=== PATIENT | male | born 1945 | race Caucasian/White ===

== ENCOUNTER → 2018-08-03 | Outpatient (CLI) | payer MEDICARE, OTHER ==
[~2018-08-03] MED LIST: ASPI81CH PO; CIPR250 PO; CLON.5 PO; DOXA4; LOVA40 PO; Mobic15 MG PO; OMEP20ER PO; PREG200 PO; PROM25S PR; VITAMIN D32000 UNI1 PO; ZINC10 MG PO
== END ==
LOC: PLD 10:32 → LAB SHORT 10:32
DX: L82.1 Other seborrheic keratosis (principal)
CPT/HCPCS: 88305

== ENCOUNTER 2020-04-30 12:10 | Day surgery (SDC) | payer MEDICARE, OTHER ==
[~2020-04-30] VITALS: Ht 175.3 cm; Wt 81.8 kg
[~2020-04-30 12:10] MED LIST changes: +LEVSOD112 PO
[2020-04-30] MEDS ORDERED: ROPI1 (13:42)
[2020-04-30] MEDS ORDERED: TAMS.4ER (13:42)
== END 2020-04-30 14:47 | disposition home or self-care (01) ==
LOC: ORSCSDS 12:10
PROVIDERS: Surgery
PROC: 0DBH8ZX Excision of Cecum, Via Natural or Artificial Opening Endoscopic, Diagnostic (ICD-10-PCS; principal; 2020-04-30 13:30)
PROC: 0DBL8ZX Excision of Transverse Colon, Via Natural or Artificial Opening Endoscopic, Diagnostic (ICD-10-PCS; principal; 2020-04-30 13:30)
DX: Z12.11 Encounter for screening for malignant neoplasm of colon (principal); Z86.010 Personal history of colon polyps; Z80.0 Family history of malignant neoplasm of digestive organs; D12.3 Benign neoplasm of transverse colon; D12.0 Benign neoplasm of cecum; E78.5 Hyperlipidemia, unspecified; Z86.73 Personal history of transient ischemic attack (TIA), and cerebral infarction without residual deficits; Z79.899 Other long term (current) drug therapy; Z87.891 Personal history of nicotine dependence
CPT/HCPCS: 88305; J2704; J7120

== ENCOUNTER 2023-04-20 08:40 | Inpatient (IN) | payer MEDICARE, OTHER ==
[~2023-04-20] VITALS: Ht 172.7 cm; Wt 183.0 kg
[~2023-04-20 08:40] MED LIST changes: +ROPI1; +TAMS.4ER
[2023-04-20 09:38] LABS: BASOPHILS ABSOLUTE AUTO 0.05 K/mm3 (0.00-0.23); BASOPHILS PERCENT AUTO 1 % (0-2); EOSINOPHILS ABSOLUTE AUTO 0.11 K/mm3 (0.00-0.68); EOSINOPHILS PERCENT AUTO 1 % (0-6); Hematocrit 50.9 % (37.0-53.0); Hemoglobin 18.3 g/dL (13.5-17.5); IMMATURE GRAN ABSOLUTE AUTO 0.03 K/mm3 (0.00-0.10); IMMATURE GRAN PERCENT AUTO 0 % (0-1); LYMPHOCYTES PERCENT AUTO 12 % (21-46); MONOCYTES ABSOLUTE AUTO 1.19 K/mm3 (0.16-1.47); MONOCYTES PERCENT AUTO 15 % (4-13); Mean Corpuscular HGB 33.5 pg (26.0-34.0); Mean Corpuscular Volume 93 fL (80-100); Mean Platelet Volume 11.3 fL (9.1-12.4); NEUTROPHILS ABSOLUTE AUTO 5.74 K/mm3 (1.96-9.15); NEUTROPHILS PERCENT AUTO 71 % (41-73); Platelet Count 265 K/mm3 (150-400); RDW Coefficient Variation 19.8 % (11.7-14.2); RDW Standard Deviation 65.1 fL (35.1-46.3); Red Blood Cell Count 5.46 M/mm3 (4.30-5.90); White Blood Cell Count 8.12 K/mm3 (4.00-11.30)
[2023-04-20 10:00] LABS: Albumin, Blood 4.1 g/dL (3.4-5.0); Albumin/Globulin Ratio 0.9 (0.8-1.8); Bilirubin, Total 0.9 mg/dL (0.1-1.0); Bun/Creatinine Ratio 11.2 (12.0-20.0); Calcium, Blood 9.7 mg/dL (8.5-10.1); Creatinine, Blood 3.66 mg/dL (0.60-1.20); Globulin, Blood 4.6 g/dL (2.2-4.0); Potassium, Blood 3.5 mmol/L (3.5-5.5); Total Protein, Blood 8.7 g/dL (6.4-8.2)
[2023-04-20 11:09] LABS: Base Excess Venous -2.7 mmol/L; Bicarbonate Venous 22.7 mmol/L (24.0-30.0); PCO2 Venous 32.1 mmHg (38-42); PO2 Venous 58.4 mmHg (38-42); pH Blood Venous 7.43 (7.34-7.37)
--- NOTE | 2023-04-20 11:53 | NUR ---
Devora is awake in his bed when he welcomes my visit. The Pt. is pleasant and Spouse is present. 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 Facilitate a recent life review and listen with interest and a calming presence. Pt. displays evidence of awareness and engagement. During the visit the ED doctor gave the Pt. and spouse an update. The plan is to have the Pt. admitted to the hospital. Pt. verbalized gratitude for the spiritual care visit. Will remain available to the Pt. and family.
[2023-04-20 11:58] LABS: Campylobacter Sp Not Detected (NOT DETECT)
[2023-04-20 11:59] LABS: Adenovirus F 40/41 Not Detected (NOT DETECT); Astrovirus Not Detected (NOT DETECT); Cryptosporidium Not Detected (NOT DETECT); Cyclospora Cayetanensis Not Detected (NOT DETECT); E. Coli O157 Not Detected (NOT DETECT); Entamoeba Histolytica Not Detected (NOT DETECT); Enteroaggregative E. coli-EAEC Not Detected (NOT DETECT); Enteropathogenic E. coli-EPEC Not Detected (NOT DETECT); Enterotoxigenic E. coli-ETEC Not Detected (NOT DETECT); Giardia Lamblia Not Detected (NOT DETECT); Norovirus GI/GII Not Detected (NOT DETECT); Plesiomonas Shigelloides Not Detected (NOT DETECT); Rotavirus A Not Detected (NOT DETECT); Salmonella Sp Not Detected (NOT DETECT); Sapovirus Not Detected (NOT DETECT); Shiga Toxin-prod E. coli-STEC Not Detected (NOT DETECT); Shigella/Enteroin E. coli-EIEC Not Detected (NOT DETECT); Vibrio Cholerae Not Detected (NOT DETECT); Vibrio Sp Not Detected (NOT DETECT); Yersinia Enterocolitica Not Detected (NOT DETECT)
[2023-04-20 14:17] VITALS: BP 127/83
--- NOTE | 2023-04-20 14:29 | NUR ---
"Spiritual Care | Follow up Pt. is awake in bed when he welcomes my visit. Pt. is pleasant, and spouse is present. Continued the life review and re-established rapport. Pt. requested prayer. Prayed with pt. and spouse. Both verbalized gratitude for the spiritual care visit."
[2023-04-20] MEDS ORDERED: HYDURE500 PO (14:38)
[2023-04-20] MEDS ORDERED: AMLO5 PO (14:39)
[2023-04-20 17:17] LABS: Source, Urine Clean Catch
[2023-04-20 17:20] LABS: Appearance, Urine Hazy (Clear); Blood, Urine 4+ (Neg); Color, Urine Yellow (P-Yellow); Glucose Qualitative, Urine Neg (Neg); Ketones, Urine Neg (Neg); Leukocyte Esterase, Urine Neg (Neg); Nitrite, Urine Neg (Neg); Protein, Urine 2+ (Neg); Specific Gravity, Urine 1.025 (1.003-1.022); Urobilinogen, Urine NORM (Normal)
[2023-04-20 17:39] LABS: Bilirubin, Urine 1+ (Neg)
[2023-04-20 17:41] LABS: Bacteria Few /hpf; Granular Casts 0-2 /lpf (0); Squamous Epithelial Cells Rare /hpf (Few)
[2023-04-20 17:42] LABS: Amorphous Light (0-Heavy)
--- NOTE | 2023-04-20 18:27 | NUR ---
SHIFT SUMMARY: PT ARRIVED TO ROOM @1400 VIA WHEELCHAIR. VERY PLEASANT MAN. COOPERATIVE WITH ALL CARE. NS INFUSING @ 200/HR. TELE IN PLACE RUNNING SINUS RHYHTM. INDEPENDENT IN ROOM. STILL C/O FREQUENT DIARRHEA BUT NO N/V NOTED THIS SHIFT. UA SENT TO LAB. RESULTS IN CHART. CALL LIGHT IN REACH. BED IN LOWEST POSITION.
[2023-04-20 19:56] VITALS: BP 128/78
--- NOTE | 2023-04-20 22:43 | NUR ---
ALERT AND OREINTED. IVF INFUSING AT 200 ML/HR. VOICED DIARRHEA EARLIER, NO C/O N/V AT THIS TIME. CALL LIGHT IN REACH
[2023-04-21 03:54] VITALS: BP 122/76
--- NOTE | 2023-04-21 04:44 | NUR ---
LACTATION CONSULTANT SUMMARY VSS. ALERT AND ORIENTED X 4. WAS REPORTED TO HAVE HAD DIARRHEA ON DAY SHIFT, NO NOTED REPORT OF DIARRHEA ON THIS SHIFT. NO NOTED N/V. IVF OF NS INFUSING AT 200 ML/HR PER HR FOR HYDRATION. UP AD NICOLE. MED TELE SINUS RHYTHM. HAS BEEN RSTING QUIETLY WITH FEW INTERRUPTIONS. CALL LIGHT IN REACH. WILL CONTINUE TO MONITOR.
[2023-04-21 05:45] LABS: BASOPHILS ABSOLUTE AUTO 0.04 K/mm3 (0.00-0.23); BASOPHILS PERCENT AUTO 1 % (0-2); EOSINOPHILS ABSOLUTE AUTO 0.15 K/mm3 (0.00-0.68); EOSINOPHILS PERCENT AUTO 2 % (0-6); Hematocrit 42.3 % (37.0-53.0); Hemoglobin 14.6 g/dL (13.5-17.5); IMMATURE GRAN ABSOLUTE AUTO 0.04 K/mm3 (0.00-0.10); IMMATURE GRAN PERCENT AUTO 1 % (0-1); LYMPHOCYTES ABSOLUTE AUTO 1.01 K/mm3 (0.84-5.20); LYMPHOCYTES PERCENT AUTO 13 % (21-46); MONOCYTES ABSOLUTE AUTO 1.17 K/mm3 (0.16-1.47); MONOCYTES PERCENT AUTO 15 % (4-13); Mean Corpuscular HGB Conc 34.5 g/dL (31.5-36.5); Mean Corpuscular Volume 96 fL (80-100); Mean Platelet Volume 11.3 fL (9.1-12.4); NEUTROPHILS ABSOLUTE AUTO 5.46 K/mm3 (1.96-9.15); NEUTROPHILS PERCENT AUTO 69 % (41-73); Platelet Count 206 K/mm3 (150-400); RDW Coefficient Variation 19.3 % (11.7-14.2); RDW Standard Deviation 67.1 fL (35.1-46.3); Red Blood Cell Count 4.42 M/mm3 (4.30-5.90); White Blood Cell Count 7.87 K/mm3 (4.00-11.30)
[2023-04-21 07:26] VITALS: BP 119/79
[2023-04-21 08:28] LABS: Albumin, Blood 3.2 g/dL (3.4-5.0); Anion Gap 9 mmol/L (6-16); Blood Urea Nitrogen 24 mg/dL (8-24); Bun/Creatinine Ratio 12.4 (12.0-20.0); CO2, Blood 18 mmol/L (21-32); Calcium, Blood 8.3 mg/dL (8.5-10.1); Chloride, Blood 112 mmol/L (98-108); Creatinine, Blood 1.94 mg/dL (0.60-1.20); Glomerular Filtration Rate 35 (60-); Glucose, Blood 101 mg/dL (70-99); Phosphorus, Blood 3.5 mg/dL (2.5-4.9); Potassium, Blood 3.4 mmol/L (3.5-5.5); Sodium, Blood 139 mmol/L (136-145)
--- NOTE | 2023-04-21 10:50 | NUR ---
RN NOTE MR LEO IS RESTING IN BED, FAMILY AT BEDSIDE. HE DENIES ANY C/O PAIN CURRENTLY THOUGH SAYS HE DOES GET SOME RIGHT FLANK DISCOMFORT ON MOVEMENT. IVF NS AT 200CC/HR AND IV POTASSIUM INFUSING CONCURRENTLY. NO C/O BURNING AT PIV SITE. UP INDEPENDENTLY TO THE BATHROOM, HE DENIES ANY UNSTEADINESS OF GAIT OR DIZZYNESS. NO DIARRHEA THIS SHIFT. PLAN OF CARE DISCUSSED WITH MD AND FAMILY, PLAN FOR POSSIBLE DISCHARGE TOMORROW. REGULAR DIET ORDER ENTERED INTO [facility] FOR LUNCH PER V.O. FROM DR JAMIL. BED LOW, CALL LIGHT IN REACH.
--- NOTE | 2023-04-21 12:05 | NUR ---
Pt. is awake in bed when he welcomes my visit. Pt. is pleasant. Spouse is present. Facilitated a life review and considered matters of family, aav and belief. Pt. displays evidence of engagement, awareness and involvement in his care. Prayed with Pt. and spouse. Both verbalized gratitude for the spiritual care visit.
[2023-04-21 15:12] VITALS: BP 128/77
--- NOTE | 2023-04-21 15:56 | NUR ---
SHIFT SUMMARY MR LEO HAS HAD MINIMAL DISCOMFORT TODAY. ATE 50% OF LUNCH AND REPORTS 3 EPISODES OF "MORE CONTROLLED" DIARRHEA AFTER LUNCH. HE HAS DECLINED WANTING IMMODIUM. NS IVF CONTINUE AT 200CC/HR AND HE IS DRINKING WATER WELL. UP INDEPENDENTLY TO THE BATHROOM. 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 BED LOW, CALL LIGHT IN REACH. AT BEDSIDE.
[2023-04-21 19:16] VITALS: BP 131/79
[2023-04-22 02:19] VITALS: BP 122/80
--- NOTE | 2023-04-22 03:39 | NUR ---
SHIFT SUMMARY PT A&O X4, COOPERATIVE WITH CARE. PT DENIES ANY N/V/D T/O THE SHIFT. PT RESTING IN BED. UP TO VOID T/O THE NIGHT INDEPENDENTLY. TELEMETRY: SR @80. NS INFUISING @ 200 ML/HR. PT DENIES ANY PAIN OR DISCOMFORT AT THIS TIME. BED KEPT IN LOWEST POSITION WITH CALL LIGHT WITHIN REACH. PT CALLS APPROPRAITELY FOR NEEDS. WILL CONTINUE TO MONITOR.
[2023-04-22 05:40] LABS: Hematocrit 39.7 % (37.0-53.0); Hemoglobin 13.7 g/dL (13.5-17.5)
[2023-04-22 06:28] LABS: Anion Gap 11 mmol/L (6-16); Blood Urea Nitrogen 10 mg/dL (8-24); CO2, Blood 18 mmol/L (21-32); Chloride, Blood 112 mmol/L (98-108); Creatinine, Blood 1.17 mg/dL (0.60-1.20); Glomerular Filtration Rate 65 (60-); Glucose, Blood 93 mg/dL (70-99); Potassium, Blood 3.2 mmol/L (3.5-5.5); Sodium, Blood 141 mmol/L (136-145)
[2023-04-22 06:29] LABS: Albumin, Blood 2.8 g/dL (3.4-5.0); Bun/Creatinine Ratio 8.5 (12.0-20.0); Calcium, Blood 8.2 mg/dL (8.5-10.1); Phosphorus, Blood 2.5 mg/dL (2.5-4.9)
[2023-04-22 07:54] VITALS: BP 122/79
--- NOTE | 2023-04-22 09:11 | NUR ---
SHIFT SUMMARY AND DISCHARGE PATIENT DISCHARGED HOME. PATIENT ALERT AND INTERACTIVE. PATIENT ABLE TO INDEPENDENTLY AMBULATE AROUND ROOM. DISCHARGE INSTRUCTIONS REVIEWED WITH AND PATIENT. IV DC'D. ROOM CHECK DONE PRIOR TO DISCHARGE. ALL BELONGINGS SENT HOME WITH PATIENT. PATIENT ESCORTED OUT VIA WHEELCHAIR BY GALA
== END 2023-04-22 09:08 | disposition home or self-care (01) | DRG 683 ==
LOC: ER 08:40 → MEDS 13:17
PROVIDERS: Emergency Medicine; Student in an Organized Health Care Education/Training Program; ADMIT Internal Medicine
DX: N17.9 Acute kidney failure, unspecified (principal); C95.90 Leukemia, unspecified not having achieved remission; E87.20 Acidosis, unspecified; E86.0 Dehydration; E89.0 Postprocedural hypothyroidism; I10 Essential (primary) hypertension; J44.9 Chronic obstructive pulmonary disease, unspecified; E87.6 Hypokalemia; E87.5 Hyperkalemia; R19.7 Diarrhea, unspecified; E78.5 Hyperlipidemia, unspecified; K21.9 Gastro-esophageal reflux disease without esophagitis; G62.9 Polyneuropathy, unspecified; Z90.49 Acquired absence of other specified parts of digestive tract; Z98.890 Other specified postprocedural states; Z86.73 Personal history of transient ischemic attack (TIA), and cerebral infarction without residual deficits; Z87.891 Personal history of nicotine dependence
CPT/HCPCS: 36415; 71046; 80053; 80069; 81001; 82803; 83605; 83690; 83735; 85014; 85018; 85025; 87507; 93005; 93010; 96361; 96365; 96375; 99285-25; A9270; C9113; J0696; J1650; J2405; J3480; J7030; J7120